=== PATIENT | male | born 1960 | race Caucasian/White ===

== ENCOUNTER 2019-03-22 16:05 | Emergency (ER) | payer OTHER ==
[~2019-03-22] VITALS: Ht 175.3 cm; Wt 89.0 kg
[2019-03-22 16:13] VITALS: Ht 175.3 cm; Wt 89.0 kg
[2019-03-22] MEDS ORDERED: SOD CHLORIDE 0.9% 1,000 ML IV STA (16:16)
[2019-03-22] MEDS ORDERED: DILTIAZEM 25 MG INJ IV ONE (16:30)
[2019-03-22] MEDS ORDERED: DILTIAZEM 30 MG TAB PO ONE (16:30)
[2019-03-22 17:00] VITALS: BP 104/64; PULSE 88; RESP 18
[2019-03-22] MEDS ORDERED: ONDANSETRON 4 MG INJ IV PRN (17:00)
[2019-03-22] MEDS ORDERED: ACETAMINOPHEN 325 MG TAB PO PRN (17:00)
[2019-03-22] MEDS ORDERED: METF100010 PO (17:08)
[2019-03-22] MEDS ORDERED: IBUP-1542 PO (17:08)
[2019-03-22] MEDS ORDERED: GLIM2TAB PO (17:09)
[2019-03-22] MEDS ORDERED: NACL 0.9% 3 ML SYG IV SCH (17:30)
[2019-03-22] MEDS ORDERED: DEXTROSE 50% 50 ML SYRINGE IV PRN ×2 (17:30)
[2019-03-22] MEDS ORDERED: GLUCAGON 1 MG INJ IM PRN (17:30)
[2019-03-22] MEDS ORDERED: GLUCOSE GEL 15 GRAM TUBE PO PRN ×2 (17:30)
[2019-03-22] MEDS ORDERED: GLUCOSE GEL 15 GRAM TUBE BUCCAL PRN (17:30)
[2019-03-22] MEDS ORDERED: OXYCODONE/ACETAMINOPHEN (5/325) TAB PO PRN (17:30)
--- NOTE | 2019-03-22 17:35 | ERD ---
ER Documentation Chief Complaint Chief Complaint anthony galarza last night, denies pain now, feeling heart beats fast today HPI Patient is a 4-year-old male with diabetes and coronary disease who presents with rapid heartbeat. The patient was brought in by ambulance. He reports chest pain that started last night at 8:30 PM and he felt like his heart was pounding for about 30 to 45 minutes. He has no pain now but does feel tired. He was sent from an urgent care where he was found to have new onset rapid atrial fibrillation at a rate of 120-140. Last night he felt afraid and dizzy and wrote a will because he said "I thought I was going to ". Upon review of old medical records this is the patient's first visit to the emergency department. ROS All systems reviewed and are negative except as per history of present illness. Medications Home Meds Reported Medications Glimepiride* (Glimepiride*) 2 Mg Tablet, 2 MG PO WITH BREAKFAST, TAB 03/22/19 Metformin Hcl* (Metformin Hcl*) 1,000 Mg Tablet, 1000 MG PO WITH BREAKFAST DINNE, #60 TAB 03/22/19 Ibuprofen* (Ibuprofen*) 600 Mg Tablet, 600 MG PO BID, TAB 03/22/19 Allergies Allergies: Coded Allergies: No Known Allergy (Unverified , 03/22/19) PMhx/Soc Positive for coronary disease and diabetes Medical and Surgical Hx: pt denies Surgical Hx History of Surgery: No Anesthesia Reaction: No Hx Neurological Disorder: No Hx Respiratory Disorders: No Hx Cardiac Disorders: No Hx Psychiatric Problems: No Hx Miscellaneous Medical Probl: No Hx Alcohol Use: No Hx Substance Use: No Hx Tobacco Use: No Smoking Status: Never smoker FmHx Family History: No coronary disease Physical Exam Vitals Vital Signs Date Temp Pulse Resp B/P (MAP) Pulse Ox O2 O2 Flow FiO2 Time Delivery Rate 03/22/19 88 18 104/64 99 Room Air 17:00 (77) 03/22/19 97.5 144 18 186/68 98 16:13 (107) Physical Exam Const: No acute distress Head: Atraumatic Eyes: Normal Conjunctiva ENT: Normal External Ears, Nose and Mouth. Neck: Full range of motion. No meningismus. Resp: Clear to auscultation bilaterally Cardio: Irregular rhythm with rapid heart rate Abd: Soft, non tender, non distended. Normal bowel sounds Skin: No petechiae or rashes Back: No midline or flank tenderness Ext: No cyanosis, or edema Neur: Awake and alert Psych: Normal Mood and Affect Result Diagram: 03/22/19 1625 03/22/19 1625 Results 24 hrs Laboratory Tests Test 03/22/19 16:12 03/22/19 16:25 Bedside Glucose 325 mg/dL White Blood Count 13.0 10^3/ul Red Blood Count 4.32 10^6/ul Hemoglobin 14.1 g/dl Hematocrit 39.8 % Mean Corpuscular Volume 92.1 fl Mean Corpuscular Hemoglobin 32.6 pg Mean Corpuscular Hemoglobin Concent 35.4 g/dl Red Cell Distribution Width 11.6 % Platelet Count 209 10^3/UL Mean Platelet Volume 11.0 fl Immature Granulocytes % 0.400 % Neutrophils % 73.3 % Lymphocytes % 16.4 % Monocytes % 9.5 % Eosinophils % 0.2 % Basophils % 0.2 % Nucleated Red Blood Cells % 0.0 /100WBC Immature Granulocytes # 0.050 10^3/ul Neutrophils # 9.5 10^3/ul Lymphocytes # 2.1 10^3/ul Monocytes # 1.2 10^3/ul Eosinophils # 0.0 10^3/ul Basophils # 0.0 10^3/ul Nucleated Red Blood Cells # 0.0 10^3/ul Sodium Level 135 mmol/L Potassium Level 4.5 mmol/L Chloride Level 101 mmol/L Carbon Dioxide Level 24 mmol/L Anion Gap 10 Blood Urea Nitrogen 17 mg/dl Creatinine 0.87 mg/dl Est Glomerular Filtrat Rate mL/min > 60 mL/min Glucose Level 323 mg/dl Calcium Level 9.3 mg/dl Magnesium Level 2.0 mg/dl Troponin I 0.018 ng/ml Thyroid Stimulating Hormone (TSH) Pending Free Thyroxine 1.02 ng/dl Current Medications Medications Dose Sig/Chandrika Start Time Status Last (Trade) Ordered Route PRN Stop Time Admin Dose Reason Admin Sodium 1,000 ml @ Q1H STAT 03/22/19 DC 03/22/19 Chloride 1,000 mls/hr IV 16:16 16:28 03/22/19 17:15 Diltiazem 20 mg ONCE ONCE 03/22/19 DC 03/22/19 HCl IV 16:30 16:28 (Cardizem Iv) 03/22/19 16:31 Diltiazem 30 mg ONCE ONCE 03/22/19 DC 03/22/19 HCl PO 16:30 16:28 (Cardizem) 03/22/19 16:31 Ondansetron 4 mg ER BRIDGE 03/22/19 HCl (Zofran PRN IV 17:00 Inj) NAUSEA/VOMITI 03/23/19 16:59 NG 650 mg ER BRIDGE 03/22/19 Acetaminophen PRN PO 17:00 (Tylenol .MILD PAIN 03/23/19 16:59 Tab) 1-3 OR TEMP IV Flush 3 ml PER 03/22/19 (NS 3 ml) PROTOCOL IV 17:30 Oxycodone/ 2 tab Q6H PRN 03/22/19 Acetaminophen PO .SEVERE 17:30 (Percocet PAIN 7-10 (5/ 325)) Discontinue ONCE ONCE 03/22/19 DC Miscellaneous current oral XX 17:30 sulfonylur... 03/22/19 17:31 Information (* Miscellaneous Pharmacy Order) Insulin 22 units DAILY@199903/22/19 Glargine SC 20:00 (Lantus) Insulin 6 unit WITH MEALS 03/22/19 Aspart SC 18:00 (Novolog Insulin Pen) ONCE ONCE 03/22/19 DC Miscellaneous HYPOGLYCEMIA XX 17:30 PROTOCOL 03/22/19 17:31 Information w... (* Miscellaneous Pharmacy Order) Insulin NOVOLOG WITH MEALS 03/22/19 Aspart *MODERATE* BEDTIME SC 18:00 (Novolog ALGORITHM Insulin Pen) 1 ea NOTE XX 03/22/19 Miscellaneous 17:30 Information Glucose 15 gm Q15M PRN 03/22/19 (Glutose) PO DECREASED 17:30 GLUCOSE Glucose 22.5 gm Q15M PRN 03/22/19 (Glutose) PO DECREASED 17:30 GLUCOSE Dextrose 25 ml Q15M PRN 03/22/19 (D50w IV DECREASED 17:30 Syringe) GLUCOSE Dextrose 50 ml Q15M PRN 03/22/19 (D50w IV DECREASED 17:30 Syringe) GLUCOSE Glucagon 1 mg Q15M PRN 03/22/19 (Glucagen) IM DECREASED 17:30 GLUCOSE Glucose 15 gm Q15M PRN 03/22/19 (Glutose) BUCCAL 17:30 DECREASED GLUCOSE Procedures/MDM EKG read by me: Rate/Rhythm: New onset and rapid atrial fibrillation at a rate of 141 Intervals: Normal Impression: Rapid A. fib without ischemia Chest x-ray negative per radiology. Patient is a 58-year-old male with diabetes and coronary artery disease who presents with new onset and rapid atrial fibrillation. The patient was given IV and p.o. diltiazem. I wanted to admit him to the hospital for cardioversion for rhythm control but the patient now wants to leave. He was seen by Dr. De La Paz who will discharge him with a prescription for metoprolol and said that he will follow-up with his primary doctor tomorrow to determine further treatment. This is a reasonable course as the patient does have close follow-up. The patient can return for any worsening symptoms but I believe outpatient management is appropriate. Laboratory studies are basically normal. Critical Care: Time: 35 minutes excluding all billable procedures. Treatments/Evaluations: Close monitoring and treatment of unstable vital signs, cardiorespiratory, and neurologic status, while maintaining tight balance of fluid, respiratory, and cardiac interventions. Departure Diagnosis: Primary Impression: Rapid atrial fibrillation Additional Impressions: Palpitations New onset atrial fibrillation Condition: Fair Patient Instructions: Atrial Fibrillation, Palpitations Referrals: [facility] (PCP) Additional Instructions: Call your primary care doctor TOMORROW for an appointment during the next 1-2 days.See the doctor sooner or return here if your condition worsens before your appointment time. SHELBY CAMPOVERDE MD March 22, 2019 17:35
--- NOTE | 2019-03-22 17:50 | CONS ---
Assessment/Plan Assessment/Plan Hospital Course (Demo Recall) 58 yo male with DMII who presents wtih A Fib with RVR as well as hyperglycemia A FIb w RVR: Patient seems to have paroxysmal A Fib for years now by history. It would be nice to admit him for observation and titration of medications but he very much would like to go home tonight. He will see his doctor tomorrow and a claims processor. I don't suspect his A Fib is 2/2 acute cause like PA or PE given lack of corresponding symptoms. As such, we will discharge him and prescribe diltiazem for rate control and Xarelto for anticoagulation. He is aware he needs to have a echocardiogram performed soon. DMII with hyperglycemia: - He reports not taking his medications in the last few weeks. I strongly stressed medication adherence. He will continue his glimepiride and metformin, I have renewed his prescriptions. Consultation Date/Type/Reason Admit Date/Time Date/Time of Note DATE: 03/22/19 TIME: 17:40 Hx of Present Illness 58 yo male with h/o DMII who presnets with palpitations Patient in his usual state of health until yesterday. [place] acute onset of racing heart beat. Has had this off and on since yesterday. Very severe. No chest pain. Went to primary care where found to have tachycardia and sent to ED where found to be in A Fib w RVR. Given diltiazem and rates now normalized. He denies any current symptoms. Said he had a similar episode a few years ago but no diagnosis was made at that time. Hyperglycemia here also noted, patient states he takes metformin and another anti-glycemic med which he cannot remember, but has been off of them for the last couple weeks. Says his sugars are controlled on this medication when he takes it. Patient requesting to be discharged tonight because he needs to take care of his elderly mother. He says he will see his PMD tomorrow and a claims processor this week. Constitutional: no complaints, improved Eyes: no complaints ENT: no complaints Respiratory: no complaints Cardiovascular: no complaints Gastrointestinal: no complaints Genitourinary: no complaints Musculoskeletal: no complaints Skin: no complaints Neurologic: no complaints Endocrine: no complaints Lymphatic: no complaints Psychological: no complaints, nl mood/affect Immunologic: no complaints Past Medical History Medical History: diabetes Home Meds Reported Medications Glimepiride* (Glimepiride*) 2 Mg Tablet, 2 MG PO WITH BREAKFAST, TAB 03/22/19 Metformin Hcl* (Metformin Hcl*) 1,000 Mg Tablet, 1000 MG PO WITH BREAKFAST DINNE, #60 TAB 03/22/19 Ibuprofen* (Ibuprofen*) 600 Mg Tablet, 600 MG PO BID, TAB 03/22/19 Medications Current Medications Ondansetron HCl (Zofran Inj) 4 mg ER BRIDGE PRN IV NAUSEA/VOMITING; Start 03/22/19 at 17:00; Stop 03/23/19 at 16:59 Acetaminophen (Tylenol Tab) 650 mg ER BRIDGE PRN PO .MILD PAIN 1-3 OR TEMP; Start 03/22/19 at 17:00; Stop 03/23/19 at 16:59 IV Flush (NS 3 ml) 3 ml PER PROTOCOL IV ; Start 03/22/19 at 17:30 Oxycodone/ Acetaminophen (Percocet (5/ 325)) 2 tab Q6H PRN PO .SEVERE PAIN 7- 10; Start 03/22/19 at 17:30 Insulin Glargine (Lantus) 22 units DAILY@2000 SC ; Start 03/22/19 at 20:00 Insulin Aspart (Novolog Insulin Pen) 6 unit WITH MEALS SC ; Start 03/22/19 at 18:00 Insulin Aspart (Novolog Insulin Pen) NOVOLOG *MODERATE* ALGORITHM WITH MEALS BEDTIME SC ; Start 03/22/19 at 18:00 Miscellaneous Information 1 ea NOTE XX ; Start 03/22/19 at 17:30 Glucose (Glutose) 15 gm Q15M PRN PO DECREASED GLUCOSE; Start 03/22/19 at 17:30 Glucose (Glutose) 22.5 gm Q15M PRN PO DECREASED GLUCOSE; Start 03/22/19 at 17:30 Dextrose (D50w Syringe) 25 ml Q15M PRN IV DECREASED GLUCOSE; Start 03/22/19 at 17:30 Dextrose (D50w Syringe) 50 ml Q15M PRN IV DECREASED GLUCOSE; Start 03/22/19 at 17:30 Glucagon (Glucagen) 1 mg Q15M PRN IM DECREASED GLUCOSE; Start 03/22/19 at 17:30 Glucose (Glutose) 15 gm Q15M PRN BUCCAL DECREASED GLUCOSE; Start 03/22/19 at 17:30 Allergies: Coded Allergies: No Known Allergy (Unverified , 03/22/19) Past Surgical History Past Surgical Hx: no surgical history Family History Significant Family History: no pertinent family hx Social History Alcohol Use: none Smoking Status: Never smoker Drug Use: none Exam/Review of Systems Exam Vitals Vital Signs Date Temp Pulse Resp B/P (MAP) Pulse Ox O2 O2 Flow FiO2 Time Delivery Rate 03/22/19 88 18 104/64 99 Room Air 17:00 (77) 03/22/19 97.5 16:13 Constitutional: alert, oriented, well developed Psych: no complaints, nl mood/affect Head: normocephalic, atraumatic Eyes: nl conjunctiva, EOMI, nl lids, nl sclera, PERRL ENMT: nl external ears & nose, nl lips & teeth, nl nasal mucosa & septum Neck: supple, non-tender Respiratory: clear to auscultation, normal air movement Cardiovascular: regular rate and rhythm, nl pulses Gastrointestinal: soft, nl liver, spleen, non-tender Musculoskeletal: nl extremities to inspection, nl gait and stance Extremities: normal pulses Neurological: ENGINEERING INTERN II-XII intact, nl mental status, nl speech, nl strength Skin: nl turgor; No rash or lesions Lymph: nl lymph nodes Results Result Diagram: 03/22/19 1625 03/22/19 1625 Results 24hrs Laboratory Tests Test 03/22/19 16:12 03/22/19 16:25 Bedside Glucose 325 H White Blood Count 13.0 H Red Blood Count 4.32 L Hemoglobin 14.1 Hematocrit 39.8 L Mean Corpuscular Volume 92.1 Mean Corpuscular Hemoglobin 32.6 Mean Corpuscular Hemoglobin Concent 35.4 Red Cell Distribution Width 11.6 Platelet Count 209 Mean Platelet Volume 11.0 H Immature Granulocytes % 0.400 Neutrophils % 73.3 Lymphocytes % 16.4 Monocytes % 9.5 Eosinophils % 0.2 Basophils % 0.2 Nucleated Red Blood Cells % 0.0 Immature Granulocytes # 0.050 H Neutrophils # 9.5 H Lymphocytes # 2.1 Monocytes # 1.2 H Eosinophils # 0.0 Basophils # 0.0 Nucleated Red Blood Cells # 0.0 Sodium Level 135 Potassium Level 4.5 Chloride Level 101 Carbon Dioxide Level 24 Anion Gap 10 Blood Urea Nitrogen 17 Creatinine 0.87 Est Glomerular Filtrat Rate mL/min > 60 Glucose Level 323 H Calcium Level 9.3 Magnesium Level 2.0 Troponin I 0.018 Thyroid Stimulating Hormone (TSH) Pending Free Thyroxine 1.02 Medications Medication Current Medications Ondansetron HCl (Zofran Inj) 4 mg ER BRIDGE PRN IV NAUSEA/VOMITING; Start 03/22/19 at 17:00; Stop 03/23/19 at 16:59 Acetaminophen (Tylenol Tab) 650 mg ER BRIDGE PRN PO .MILD PAIN 1-3 OR TEMP; Start 03/22/19 at 17:00; Stop 03/23/19 at 16:59 IV Flush (NS 3 ml) 3 ml PER PROTOCOL IV ; Start 03/22/19 at 17:30 Oxycodone/ Acetaminophen (Percocet (5/ 325)) 2 tab Q6H PRN PO .SEVERE PAIN 7- 10; Start 03/22/19 at 17:30 Insulin Glargine (Lantus) 22 units DAILY@2000 SC ; Start 03/22/19 at 20:00 Insulin Aspart (Novolog Insulin Pen) 6 unit WITH MEALS SC ; Start 03/22/19 at 18:00 Insulin Aspart (Novolog Insulin Pen) NOVOLOG *MODERATE* ALGORITHM WITH MEALS BEDTIME SC ; Start 03/22/19 at 18:00 Miscellaneous Information 1 ea NOTE XX ; Start 03/22/19 at 17:30 Glucose (Glutose) 15 gm Q15M PRN PO DECREASED GLUCOSE; Start 03/22/19 at 17:30 Glucose (Glutose) 22.5 gm Q15M PRN PO DECREASED GLUCOSE; Start 03/22/19 at 17:30 Dextrose (D50w Syringe) 25 ml Q15M PRN IV DECREASED GLUCOSE; Start 03/22/19 at 17:30 Dextrose (D50w Syringe) 50 ml Q15M PRN IV DECREASED GLUCOSE; Start 03/22/19 at 17:30 Glucagon (Glucagen) 1 mg Q15M PRN IM DECREASED GLUCOSE; Start 03/22/19 at 17:30 Glucose (Glutose) 15 gm Q15M PRN BUCCAL DECREASED GLUCOSE; Start 03/22/19 at 17:30 TRACEY HALEY MD March 22, 2019 17:50
--- NOTE | 2019-03-22 17:52 | PDOCDIS ---
Discharge Instructions DIAGNOSIS Discharge Diagnosis Atrial fibrillation with rapid ventricular response Diabetes CONDITION [id number] Patient Condition: [id number] Stable FOLLOW UP/APPOINTMENTS Follow-up Plan - It is very important that you take your medications as prescribed. I have pre scribed you diltiazem (to control you heart rate) and Xarelto (blood thinner). Discuss these medications with your primary doctor STEVE. It is very important for you to have an echocardiogram performed - It is also very important to take your diabetes medications as your blood sugar is out of control. I also renewed these meds - Your scripts are available for pickup at [facility] in [place] on [address] - Call me at [phone] if you have any issues in the meantime TRACEY HALEY MD March 22, 2019 17:52
[2019-03-22] MEDS ORDERED: INSULIN ASPART [NOVOLOG] 3 ML PEN SC SCH ×2 (18:00)
[2019-03-22] MEDS ORDERED: INSULIN GLARGINE [LANTus] (100 UNITS/ML) SYG SC SCH (20:00)
--- NOTE | 2019-03-23 14:28 | RADRPT ---
Vent Rate: 141 bpm RR Interval: 0 msec MT Interval: 0 msec QRS Duration: 86 msec QT Interval: 290 msec QTC Interval: 444 msec P-R-T [place]: 0 - 71 - 50 degrees Atrial fibrillation with rapid ventricular response Abnormal ECG Electronically Signed By: [facility]
--- NOTE | 2019-03-23 14:28 | RADRPT ---
Vent Rate: 132 bpm RR Interval: 0 msec RI Interval: 0 msec QRS Duration: 90 msec QT Interval: 300 msec QTC Interval: 444 msec P-R-T [place]: 0 - 79 - 62 degrees Atrial fibrillation with rapid ventricular response Abnormal ECG Electronically Signed By: [facility]
== END 2019-03-22 18:09 | disposition home or self-care (01) ==
LOC: E/R 16:05 → SUATTDRO 17:01 → E/R 18:09 → CANBEDREQ 03-23 04:47
PROVIDERS: ATTEND Internal Medicine
DX: I48.91 Unspecified atrial fibrillation (principal); E11.9 Type 2 diabetes mellitus without complications; I25.10 Atherosclerotic heart disease of native coronary artery without angina pectoris; Z79.84 Long term (current) use of oral hypoglycemic drugs
CPT/HCPCS: 36415; 71045; 80048; 82962; 83735; 84439; 84443; 84484; 85025; 93005; 96374; J1815; J7030; Z7502; Z7610